=== PATIENT | male | born 1950 | race Caucasian/White ===

== ENCOUNTER 2018-11-30 14:04 | Emergency (ER) | payer OTHER ==
[~2018-11-30] VITALS: Ht 175.3 cm; Wt 81.7 kg
[2018-11-30] MEDS ORDERED: NEXIUM40 MG PO (14:28)
[2018-11-30] MEDS ORDERED: XARELTO20 MG PO (14:30)
[2018-11-30] MEDS ORDERED: BYSTOLIC20 MG PO (14:30)
[2018-11-30] MEDS ORDERED: EZALLOR SPRINKL10 MG PO (14:32)
[2018-11-30 15:35] LABS: ABSOLUTE NEUTROPHILS 6.9 thou/uL (1.4-8.2); BASOPHILS 0.3 % (0.0-2.0); EOSINOPHILS 0.3 % (0.0-3.0); HEMATOCRIT 44.6 % (42.0-52.0); LYMPHOCYTES 10.9 % (24.0-44.0); MCH 35.6 pg (26.0-34.0); MCHC 33.6 g/dL (28.0-37.0); MCV 106.1 fL (80.0-100.0); MONOCYTES 7.1 % (1.0-8.0); POLYS 81.4 % (36.0-66.0); RBC 4.21 mil/uL (4.50-6.00); RDW 14.5 % (10.5-14.5); WBC 8.4 thou/uL (4.0-11.0)
[2018-11-30 15:39] LABS: URINE BILIRUBIN NEGATIVE (Negative); URINE BLOOD NEGATIVE (Negative); URINE CLARITY CLEAR; URINE COLOR YELLOW; URINE GLUCOSE-RANDOM* NEGATIVE (Negative); URINE KETONES NEGATIVE (Negative); URINE LEUKOCYTES-REFLEX NEGATIVE (Negative); URINE NITRITE-REFLEX NEGATIVE (Negative); URINE PROTEIN (DIPSTICK) 2+ (Negative); URINE SPECIFIC GRAVITY >= 1.030 (1.005-1.035)
[2018-11-30 15:54] LABS: ANION GAP 11 mmol/L (7-16); APTT 36.6 Seconds (24.5-32.8); BUN 40 mg/dL (7-18); CALCIUM 8.4 mg/dL (8.5-10.1); CHLORIDE 99 mmol/L (98-107); CO2 24 mmol/L (21-32); CREATININE 1.4 mg/dL (0.7-1.3); GLUCOSE 103 mg/dL (74-106); INR 1.6; POTASSIUM 4.8 mmol/L (3.5-5.1); PROTIME 16.7 Seconds (9.3-11.4); SODIUM 134 mmol/L (136-145)
[2018-11-30 15:54] LABS: HYALINE CASTS 0-3 Few /LPF (None Seen); SQUAMOUS 0-3 Few /LPF (0-3)
[2018-11-30 15:55] LABS: CRYSTALS None Seen /LPF (None Seen); URINE WBC-REFLEX 0-5 Rare /HPF (0-5)
[2018-11-30 15:56] LABS: BACTERIA-REFLEX None Seen /HPF (None Seen); URINE RBC None Seen /HPF (0-2)
[2018-11-30 16:03] LABS: PLATELET COUNT 82 thou/uL (150-400)
[2018-11-30 16:04] LABS: ALBUMIN 3.5 g/dL (3.4-5.0); DIRECT BILIRUBIN 0.5 mg/dL (<0.1-0.3); MACROCYTES 1+; SGOT 45 U/L (15-37); SGPT 76 U/L (30-65); TOTAL BILIRUBIN 1.1 mg/dL (<0.1-1.0); TOTAL PROTEIN 6.3 g/dL (6.4-8.2); TROPONIN-I <0.06 ng/mL (<0.06)
[2018-11-30 17:30] VITALS: BP 119/78
--- NOTE | 2018-12-01 12:24 | EKG ---
[address] [place] [address] ELECTROCARDIOGRAM REPORT Name: JAMES POTTER Room #: [facility]#: [id number] Admission: 11/30/18 Attend Phys: Discharge: 11/30/18 Date of : 54 Report #: [id number] THIS REPORT FOR: //name// [facility] ED Test Date: 2018-11-30 Test Time: 14:13:28 Pat Name: JAMES POTTER Department: Room: Gender: Delivery Driver: [facility] : 1950 Requested By: Neha Gaspar Order Number: [id number] MD: Fabricio Feng Measurements Intervals [place] Rate: 117 P: [place]: QRS: 46 QRSD: 79 T: 24 QT: 324 QTc: 452 Interpretive Statements Atrial fibrillation Poor R wave progression No previous ECG available for comparison Electronically Signed On 12-01-2018 12:24:04 CDT by Fabricio Feng [email or web address] <ELECTRONICALLY SIGNED> By: Fabricio Feng MD, [facility] 12/01/18 1224 1413 1413 Fabricio Feng MD, FACC /EPI
[2018-12-11] MEDS ORDERED: TOPROL XL25 MG PO (07:52)
== END 2018-11-30 17:31 | disposition home or self-care (01) ==
LOC: ER 14:04
PROVIDERS: Emergency Medicine
DX: I48.91 Unspecified atrial fibrillation (principal); R06.00 Dyspnea, unspecified; R53.83 Other fatigue; J44.9 Chronic obstructive pulmonary disease, unspecified

== ENCOUNTER → 2018-12-11 | Outpatient (CLI) | payer OTHER ==
[~2018-12-11] VITALS: Ht 175.3 cm; Wt 83.0 kg
[~2018-12-11] MED LIST: BYSTOLIC20 MG PO; EZALLOR SPRINKL10 MG PO; KLOR-CON 1010 MEQ PO; LISINOPRIL2.5 MG PO; NEXIUM40 MG PO; PACERONE 200 M200 M1 PO; TOPROL XL25 MG PO; TORSEMIDE20 MG PO; XARELTO20 MG PO
[2018-12-11 07:46] VITALS: BP 119/90
--- NOTE | 2018-12-17 15:55 | P ---
[facility] [place] [address] PROCEDURE REPORT Name: JAMES POTTER Room #: [facility].#: [id number] Admission: 12/11/18 Attend Phys: Daljit Castillo MD Discharge: Date of : 54 Report #: [id number] THIS REPORT FOR: //name// CC: Daljit Castillo [facility] physician/PCP PREOPERATIVE DIAGNOSIS: Atrial fibrillation. POSTOPERATIVE DIAGNOSIS: Atrial fibrillation. DESCRIPTION OF PROCEDURE: The patient underwent informed consent. He was then prepped in a standard fashion. He was sedated by the Anesthesiology service. Once sedated, he underwent a 200-joule synchronized cardioversion with yazidism of sinus rhythm. There were no procedure-related complications. CONCLUSIONS: Successful DC cardioversion with yazidism of sinus rhythm. <ELECTRONICALLY SIGNED> By: César Cody MD 12/17/18 1555 0923 0029 César Cody MD /nt
== END | disposition home or self-care (01) ==
LOC: CATH 06:48
DX: I48.91 Unspecified atrial fibrillation (principal); I10 Essential (primary) hypertension; J44.9 Chronic obstructive pulmonary disease, unspecified; K21.9 Gastro-esophageal reflux disease without esophagitis; Z98.890 Other specified postprocedural states; Z79.899 Other long term (current) drug therapy; Z79.01 Long term (current) use of anticoagulants
CPT/HCPCS: 62110; 62900

== ENCOUNTER → 2019-01-22 | Outpatient (CLI) | payer OTHER ==
[~2019-01-22] MED LIST changes: -KLOR-CON 1010 MEQ PO; -LISINOPRIL2.5 MG PO; -PACERONE 200 M200 M1 PO; -TORSEMIDE20 MG PO
[2019-01-22 08:04] LABS: HEMATOCRIT 47.6 % (42.0-52.0); HEMOGLOBIN 15.9 gm/dL (14.0-18.0); MCHC 33.3 g/dL (28.0-37.0); MCV 105.1 fL (80.0-100.0); RBC 4.52 mil/uL (4.50-6.00); RDW 14.7 % (10.5-14.5); WBC 5.3 thou/uL (4.0-11.0)
[2019-01-22 08:27] LABS: ALBUMIN 3.5 g/dL (3.4-5.0); CALCIUM 8.8 mg/dL (8.5-10.1); CREATININE 1.1 mg/dL (0.7-1.3); TOTAL PROTEIN 6.8 g/dL (6.4-8.2)
== END ==
LOC: CAT 07:37
PROVIDERS: Internal Medicine Cardiovascular Disease
DX: I48.91 Unspecified atrial fibrillation (principal); I25.10 Atherosclerotic heart disease of native coronary artery without angina pectoris

== ENCOUNTER 2019-01-30 06:30 | Observation (INO) | payer OTHER ==
[2019-01-30] VITALS (12 sets, daily range): BP systolic 121–159; BP diastolic 71–115
[~2019-01-30] VITALS: Ht 175.3 cm; Wt 82.6 kg
[2019-01-30] MEDS ORDERED: KLOR-CON 1010 MEQ PO (07:16)
[2019-01-30] MEDS ORDERED: TORSEMIDE20 MG PO (07:17)
[2019-01-30 07:28] LABS: ABSOLUTE NEUTROPHILS 2.4 thou/uL (1.4-8.2); BASOPHILS 1.6 % (0.0-2.0); EOSINOPHILS 1.3 % (0.0-3.0); HEMOGLOBIN 14.5 gm/dL (14.0-18.0); LYMPHOCYTES 33.7 % (24.0-44.0); MCH 34.7 pg (26.0-34.0); MCHC 32.9 g/dL (28.0-37.0); MCV 105.7 fL (80.0-100.0); MONOCYTES 9.7 % (1.0-8.0); POLYS 53.7 % (36.0-66.0); RBC 4.16 mil/uL (4.50-6.00); RDW 15.4 % (10.5-14.5); WBC 4.4 thou/uL (4.0-11.0)
[2019-01-30 07:33] LABS: CALCIUM 8.9 mg/dL (8.5-10.1); POTASSIUM 3.7 mmol/L (3.5-5.1)
[2019-01-30 07:40] LABS: APTT 26.1 Seconds (24.5-32.8); PROTIME 10.9 Seconds (9.3-11.4)
[2019-01-30 08:23] LABS: MACROCYTES 1+; PLATELET COUNT 94 thou/uL (150-400)
--- NOTE | 2019-01-30 17:04 | NUR ---
PATIENT ARRIVED FROM EP LAB AT 1230, ALERT AND ORIENTED X4. SR ON THE MONITOR. RT GRION SITE INTACT. C/O BACK PAIN AND MEDICATED, AMIO BOLUS AND DRIP GIVEN. ADMISSION COMPLETED.AND WILL COTINUE WITH POC.
[2019-01-31 00:16] VITALS: BP 108/68
--- NOTE | 2019-01-31 00:44 | NUR ---
PATIENTS CARES WAS ASSUMED AT SHIFT CHANGE. PATIENT WAS ASSESS AND MEDS WERE PASSED. PATIENT IS IN SR AND RATE IS IRREGULAR. PATIENT FINISHED HIS AMIO GTT AND NURSING WILL CONTINUE TO MONITOR. THIS IS A VERY ENGAGING MAN. HIS BIG CONCERN EXPRESSED IS HIS NEED FOR VIAGRA. BUT FEARFUL DUE TO HEART MEDS. ADVISED THIS PATIENT TO SPEEK WITH HIS REGULATOR OPERATOR ABOUT COMBIANING THE TWO MEDS IN THE MORING AT ROUNDS. HOURLY ROUNDING DONE. PATIENT REQUESTED NO B/P CHECKS AT 0400. TO CHECK AT 0700. MEDS WILL BE GROUPED THE SAME WAY. PATIENT INDEPENDENT IN HIS ROOM UP ADL WITH A STEAD GATE. THE BED IS IN A LOW AND LOCKED POSITION.
[2019-01-31 04:24] LABS: CALCIUM 8.9 mg/dL (8.5-10.1); CREATININE 1.2 mg/dL (0.7-1.3); POTASSIUM 4.4 mmol/L (3.5-5.1)
[2019-01-31 07:45] VITALS: BP 130/86
[2019-01-31] MEDS ORDERED: PACERONE 200 M200 M1 PO (10:26)
[2019-01-31] MEDS ORDERED: LISINOPRIL2.5 MG PO (10:26)
[2019-01-31 10:56] VITALS: BP 108/68
--- NOTE | 2019-01-31 13:00 | P ---
[facility] [place] [address] PROCEDURE REPORT Name: JAMES POTTER [id number] Admission: 01/30/19 Attend Phys: César Cody MD Discharge: 01/31/19 Date of : 54 Report #: [id number] THIS REPORT FOR: //name// CC: [facility] physician/PCP César Cody PREOPERATIVE DIAGNOSIS: Atrial fibrillation. POSTOPERATIVE DIAGNOSIS: Atrial fibrillation. PROCEDURES PERFORMED: 1. Atrial fibrillation ablation, CPT code 80883. 2. A 3D mapping, CPT code 48581. 3. Intracardiac echo, CPT code 72150. HISTORY: The patient is a 69-year-old with history of AFib, here for an ablation. ANESTHESIA: The patient underwent general anesthesia with no anesthesia related complications. DESCRIPTION OF PROCEDURE: The patient underwent informed consent. We discussed the details of the procedure including the risks, which include but not limited to bleeding, vascular damage, cardiac perforation as well as stroke or RI. He understood these risks and is willing to proceed. The patient was brought to the EP laboratory in a fasting and sedated state, prepped and draped in a sterile fashion. I injected lidocaine at the right groin and obtained access to the right femoral vein x 3, placing an 8, 9 and 7-Ukrainian short sheath using the modified Seldinger technique. Next, under fluoroscopy, I placed a decapolar catheter into the right atrium. Of note, I had difficulties getting into the coronary sinus and despite multiple attempts, it would not go in any further than the proximal CS and it would fall out. Therefore, I did not place this in the CS and left in the high right atrium and used it for phrenic nerve pacing later in the case. Using intracardiac ultrasound, I verified that the patient had left atrial appendage, two left and two right pulmonary veins. He did have a prominent Coumadin ridge noted. Using intracardiac ultrasound, I created a 3D geometry of the left atrium and I merged this with the patient's cardiac CT scan. Next, the patient was systemically heparinized and transseptal was performed using an SL1 sheath and Ozark needle. Transseptal was straightforward and placed the wire into the left superior pulmonary vein and advanced the SL1 sheath into the left atrium and then exchanged for the cryo sheath. Via the cryo sheath I placed the Lasso catheter into the left atrium and created a voltage map of the atria. Next, I exchanged for the cryoablation balloon and started by isolating the left superior pulmonary vein. The left superior pulmonary vein required 3 freezes. The first freeze was of 4 minutes' duration, did not result in isolation of the vein. [facility] [address] [place] [address] PROCEDURE REPORT Name: JAMES POTTER Room #: 204-P [facility]#: [id number] Admission: 01/30/19 Attend Phys: César Cody MD Discharge: 01/31/19 Date of : 54 Report #: [id number] second freeze was of 130 seconds' duration and the vein isolated within 47 seconds. Attempts were cold and therefore I came off early. I then performed a third freeze of 130 seconds' duration and came off early due to cold attempts. Post-isolation of the left superior pulmonary vein there was clearly a dissociated PV potentials. I then turned my attention to the left inferior pulmonary vein. I performed an initial 5-minute freeze, which resulted in isolation of the vein within 200 seconds, but then reconnected after the fall. I performed a second 5-minute freeze, which resulted in isolation within 145 seconds. The vein appeared to be isolated at this point with dissociated PV potentials. Next, I turned my attention to the right superior pulmonary vein. I performed a 3-minute freeze followed by a 170 second freeze. The vein isolated within 40 seconds of the first freeze. The right inferior vein underwent a 4-minute freeze, which resulted in isolation within 200 seconds, but there was reconnection. I then performed a second freeze, which I was occluding both the middle and a right inferior pulmonary vein. The second freeze was of 3 minutes duration and the vein isolated within 19 seconds. I went back and rechecked the left inferior pulmonary vein and this had reconnected. I therefore performed a sub-selective freeze with the balloon anchoring the very inferior aspect of the vein. This third freeze was of 4 minutes' duration and the vein isolated within 30 seconds. The patient very likely had a small little inferior gap that was isolated during this third freeze. Post-ablation a repeat voltage map was created, which showed that we had created a wide circumferential ablation of the pulmonary veins. There were clearly dissociated PV potentials noted in the left superior and left inferior pulmonary veins. I then performed a basic EP study. Of note, prior to ablation, the patient was in atrial fibrillation, but at somewhat low blood pressures and therefore before I obtained access he underwent a 200 joule cardioversion with muslim of sinus rhythm. Post-ablation, he was in sinus rhythm and I did a basic EP study. AV block was noted at 310 milliseconds. Atrial ERP was noted at 260 milliseconds at a [address] cycle length. Aggressive atrial pacing maneuvers were performed and I did not induce any atrial fibrillation or atrial flutter. As such, the procedure was concluded. The patient received systemic protamine and catheters and sheaths were pulled and a [id number] suture was deployed to the right groin. There were no procedure related complications. CONCLUSIONS: Successful AFib ablation with wide circumferential ablation of the pulmonary veins. <ELECTRONICALLY SIGNED> By: César Cody MD 01/31/19 1300 1157 1226 César Cody MD /nt
== END 2019-01-31 12:51 | disposition home or self-care (01) ==
LOC: CATH 06:30 → 2N 13:18 → CATH 13:28 → 2N 01-31 12:51
PROVIDERS: ADMIT Internal Medicine Cardiovascular Disease
DX: I48.0 Paroxysmal atrial fibrillation (principal); I10 Essential (primary) hypertension; E78.5 Hyperlipidemia, unspecified; Z79.899 Other long term (current) drug therapy
CPT/HCPCS: 62110; 62900; 65020; 65040; 70005

== ENCOUNTER → 2019-05-09 | Outpatient (CLI) | payer OTHER ==
[~2019-05-09] MED LIST changes: +KLOR-CON 1010 MEQ PO; +LISINOPRIL2.5 MG PO; +PACERONE 200 M200 M1 PO; +TORSEMIDE20 MG PO
== END ==
LOC: SJCVCIMAG 09:24
DX: I07.1 Rheumatic tricuspid insufficiency (principal); I11.9 Hypertensive heart disease without heart failure; I48.0 Paroxysmal atrial fibrillation; I42.9 Cardiomyopathy, unspecified; E78.5 Hyperlipidemia, unspecified

== ENCOUNTER → 2020-08-20 | Outpatient (CLI) | payer OTHER | LOC: RAD 11:09 | PROVIDERS: ATTEND Internal Medicine | DX: M25.551 Pain in right hip (principal); M25.552 Pain in left hip ==

== ENCOUNTER → 2021-04-26 | Outpatient (CLI) | payer OTHER | LOC: SJCVCIMAG 09:56 | PROVIDERS: ATTEND Internal Medicine | DX: I25.9 Chronic ischemic heart disease, unspecified (principal); I11.0 Hypertensive heart disease with heart failure; I50.20 Unspecified systolic (congestive) heart failure; R06.00 Dyspnea, unspecified; I48.0 Paroxysmal atrial fibrillation; I42.9 Cardiomyopathy, unspecified; E78.5 Hyperlipidemia, unspecified; Z79.899 Other long term (current) drug therapy ==